=== PATIENT | male | born 1960 | race Hispanic/Latino ===

== ENCOUNTER 2021-10-28 22:30 | Emergency (ER) | payer OTHER ==
[~2021-10-28] VITALS: Ht 172.7 cm; Wt 117.9 kg
--- OUTSIDE RECORDS SUMMARY | 2021-10-29 01:20 | XMS ---
PreManage Notification: PAO JAVED Security Cuffer Events No recent Security Events currently on file CRITERIA MET - [facility] - 2 Visits in 30 Days - [facility] - 3 Facilities in 90 Days - 6 ED Visits in 6 Months CARE PROVIDERS WANDA QURESHI Internal Medicine Current PHONE: Unknown Tristin has no Care Guidelines for this patient. E.D. V[facility] COUNT (12 MO.) [facility] TOTAL 8 NOTE: Visits indicate total known visits. ED/UCC VISIT TRACKING (12 MO.) 10/28/2021 22:31 EILEEN Damian TYPE: Emergency COMPLAINT: - MEDICAL CLEARANCE [facility] 03[facility] DIAGNOSES: - Other specified soft tissue disorders - Foot Wound 10/20/2021 01:23 Kieran Sibley [place] TYPE: Emergency DIAGNOSES: - Other specified health status - snf (current) use of insulin - Hyperglycemia, unspecified - Diarrhea, unspecified - Altered Mental Status - Encounter for other general examination - Type 2 diabetes mellitus with hyperglycemia [facility] DIAGNOSES: - Insomnia, unspecified - Anxiety - Anxiety disorder, unspecified - irregular heart rate - Depression - Palpitations - Acute stress reaction 10/03/2021 21:07 [facility]: [facility] DIAGNOSES: - Weakness - Nausea - Weakness - Chills - reaction medication - Hypo-osmolality and hyponatremia 09[facility] DIAGNOSES: - Foot Pain - Elevated white blood cell count, unspecified - Other chronic osteomyelitis, right ankle and foot 03/27/2021 16:49 [facility] DIAGNOSES: - Cellulitis of unspecified part of limb - Unspecified open wound, right lower leg, sequela - Type 2 diabetes mellitus with hyperglycemia - Wound Infection (Complicated) - Type 2 diabetes mellitus with other skin complications - Post-Op complication 11/30/2020 21:10 [facility] DIAGNOSES: - Non-pressure chronic ulcer of other part of right foot with necrosis of muscle - infected toe - Toe Redness INPATIENT VISIT TRACKING (12 MO.) 09/20/2021 13:[facility] DIAGNOSES: - SWING BED - Acquired absence of left foot - Difficulty in walking, not elsewhere classified 09/09[facility]2021 [facility] DIAGNOSES: - Cellulitis of right lower limb - Osteomyelitis, unspecified - Other acquired deformities of right foot - Local infection of the skin and subcutaneous tissue, unspecified - Chronic kidney disease, stage 3 unspecified - Elevated white blood cell count, unspecified - Other chronic osteomyelitis, right ankle and foot - Type 2 diabetes mellitus with foot ulcer - Acquired absence of left foot - Chronic kidney disease, stage 3a - Unspecified open wound, right foot, initial encounter - Peripheral vascular disease, unspecified - Type 2 diabetes mellitus with other skin complications - Non-pressure chronic ulcer of other part of right foot with other specified severity - Type 2 diabetes mellitus with hyperglycemia - Type 2 diabetes mellitus with diabetic peripheral angiopathy without gangrene 04/17/2021 06:13 [facility] TYPE: Surgery DIAGNOSES: - middle or intermediate school principal (current) use of insulin - Non-pressure chronic ulcer of other part of unspecified foot with necrosis of muscle - Weakness - Type 2 diabetes mellitus with diabetic neuropathy, unspecified - Other specified diabetes mellitus with foot ulcer - Essential (primary) hypertension - Acquired absence of right foot - Osteomyelitis, unspecified - Peripheral vascular disease, unspecified - Acquired absence of other right toe(s) 11/30/2020 21:10 [facility] TYPE: General Medicine DIAGNOSES: - Non-pressure chronic ulcer of other part of unspecified foot with unspecified severity - Essential (primary) hypertension - Weakness - Type 2 diabetes mellitus with foot ulcer - Osteomyelitis, unspecified - Non-pressure chronic ulcer of other part of right foot with necrosis of muscle - Hypo-osmolality and hyponatremia - Cellulitis of right lower limb - Systemic inflammatory response syndrome (SIRS) of non-infectious origin without acute organ dysfunction [email or web address]
[2021-10-29] MEDS ORDERED: FREESTYLE LIBR1 EAC2 TOP (02:56)
[2021-10-29] MEDS ORDERED: ATORVASTATIN CA80 MG PO (02:58)
[2021-10-29] MEDS ORDERED: ATORVASTATIN CA10 MG PO (02:59)
[2021-10-29] MEDS ORDERED: CARVEDILOL6.25 MG PO (03:00)
[2021-10-29] MEDS ORDERED: VANCOMYCIN HCL125 MG PO (03:00)
[2021-10-29] MEDS ORDERED: HYDROCHLOROTHIA25 MG PO (03:01)
[2021-10-29] MEDS ORDERED: LISINOPRIL40 MG PO (03:02)
[2021-10-29] MEDS ORDERED: ADULT ASPIRIN R81 MG PO (03:04)
[2021-10-29] MEDS ORDERED: NAPROXEN500 MG PO (03:05)
[2021-10-29] MEDS ORDERED: [UNRECOGNIZED DRUG - OTHER] MISC (03:07)
== END 2021-10-29 14:18 | disposition home or self-care (01) ==
LOC: ED 22:30
DX: R41.0 Disorientation, unspecified (principal); F03.90 Unspecified dementia, unspecified severity, without behavioral disturbance, psychotic disturbance, mood disturbance, and anxiety; E11.9 Type 2 diabetes mellitus without complications; Z79.899 Other long term (current) drug therapy; Z79.82 Long term (current) use of aspirin
CPT/HCPCS: 70450; 80053; 81001; 84443; 85025; 99285-25; A9270-GY; G0480